=== PATIENT | male | born 2000 | race Caucasian/White ===

== ENCOUNTER 2025-02-28 11:05 | Outpatient (CLI) | payer OTHER, SELFPAY | END 2025-02-28 11:06 | disposition home or self-care (01) | LOC: LKVREF 11:07 | PROVIDERS: PCP Family Medicine; Visit Provider Family Medicine | DX: M54.9 Dorsalgia, unspecified (principal); E66.9 Obesity, unspecified; Z13.6 Encounter for screening for cardiovascular disorders | CPT/HCPCS: 80053; 80061 ==